=== PATIENT | female | born 1955 | race Two or more races ===

== ENCOUNTER 2023-05-24 07:47 | Day surgery (SDC) | payer OTHER | END 2023-05-24 12:20 | disposition home or self-care (01) | LOC: AMB-ENDOS 07:47 → CIR.AMB 12:45 | PROVIDERS: ATTEND Surgery | DX: D12.0 Benign neoplasm of cecum (principal); K63.5 Polyp of colon; Z86.010 Personal history of colon polyps; K64.8 Other hemorrhoids; K57.30 Diverticulosis of large intestine without perforation or abscess without bleeding; K62.0 Anal polyp; K62.1 Rectal polyp; Z20.822 Contact with and (suspected) exposure to COVID-19 ==

== ENCOUNTER 2023-07-06 08:00 | Outpatient (CLI) | payer OTHER | END 2023-07-06 08:01 | disposition home or self-care (01) | LOC: EKG 08:00 → SURH 07-13 07:00 → EDSTATUS 07-21 10:15 → SURH 07-21 10:15 | PROVIDERS: ATTEND Surgery | DX: D12.0 Benign neoplasm of cecum (principal); K63.5 Polyp of colon; Z86.010 Personal history of colon polyps; K62.1 Rectal polyp ==

== ENCOUNTER 2023-12-21 11:30 | Inpatient (IN) | payer OTHER ==
[~2023-12-21] VITALS: Ht 152.4 cm; Wt 89.8 kg
[~2023-12-21 11:30] MED LIST: SIMVASTATIN20 MG; SYNTHROID75 MCG
[2023-12-21] MEDS ORDERED: MONTELUKAST SOD10 MG PO (15:37)
[2023-12-21] MEDS ORDERED: VITAMIN D310 MCG/1 M PO (15:37)
[2023-12-21] MEDS ORDERED: MILLIPRED5 MG PO (15:37)
[2023-12-21] MEDS ORDERED: PROAIR RESPICL90 MCG IH (15:37)
[2023-12-21] MEDS ORDERED: DAFLONEX-XL 11300 MG PO (15:38)
[2023-12-28] MEDS ORDERED: FLONASE16 GM (09:41)
[2023-12-28] MEDS ORDERED: BUDESONIDE-FO10.2 G1 (09:41)
[2023-12-28] MEDS ORDERED: CEFTRIAXONE SODIUM 2,000 MG VIAL ONE (09:59)
[2023-12-28] MEDS ORDERED: METRONIDAZOLE/SODIUM CHLORIDE 500 MG/100 ML PIGGYBACK IV ONE ×2 (09:59→20:37)
[2023-12-28] MEDS ORDERED: ENOXAPARIN SODIUM 40 MG/0.4 ML SYRINGE SUBCUTANEO ONE (13:08)
[2023-12-28] MEDS ORDERED: OxyCODONE HCL 5 MG TABLET (ROXICODONE) PO PRN (16:15)
[2023-12-28] MEDS ORDERED: ONDANSETRON HCL 2 MG/ML VIAL IV PRN (16:15)
[2023-12-28] MEDS ORDERED: MORPHINE SULFATE 4 MG/ML CARTRIDGE IV PRN (16:15)
[2023-12-28] MEDS ORDERED: RINGERS SOLUTION,LACTATED 1,000 ML IV SCH (16:15)
[2023-12-28] MEDS ORDERED: METRONIDAZOLE/SODIUM CHLORIDE 500 MG/100 ML PIGGYBACK IV SCH (17:00)
[2023-12-28] MEDS ORDERED: GABAPENTIN 300 MG CAPSULE PO SCH (17:00)
[2023-12-28] MEDS ORDERED: HYOSCYAMINE SULFATE 0.125 MG TAB.SUBL SL SCH (17:00)
[2023-12-28] MEDS ORDERED: ACETAMINOPHEN 500 MG GEL..CAP PO SCH (18:00)
[2023-12-28 18:07] LABS: ABG PH 7.432 (7.35-7.45); ABG PO2 172.4 mmHg (80-100); ABG pCO2 35.5 mmHg (35-45); BASE EXCESS -0.6 mmol/l; BICARBONATE 23.1 mmol/l (23-25); SaO2 99.6 %; Tco2 24.2 mmol/l
[2023-12-28 18:08] LABS: allen test SATISFACTORY; o2 100 %; puncture site RADIAL RIGHT
[2023-12-28 18:46] LABS: ABG PH 7.407 (7.35-7.45)
[2023-12-28 18:47] LABS: ABG PO2 149.6 mmHg (80-100); ABG pCO2 36.4 mmHg (35-45); BASE EXCESS -1.7 mmol/l; BICARBONATE 22.4 mmol/l (23-25); SaO2 99.3 %; Tco2 23.5 mmol/l
[2023-12-28 18:49] LABS: allen test SATISFACTORY; o2 50 %; puncture site RADIAL RIGHT
[2023-12-28] MEDS ORDERED: CIPROFLOXACIN IN 5 % DEXTROSE 400 MG/200 ML PIGGYBAG IV ONE (20:36)
[2023-12-28] MEDS ORDERED: FAMOTIDINE/PF 20 MG/2 ML VIAL ONE (20:37)
[2023-12-28] MEDS ORDERED: CIPROFLOXACIN IN 5 % DEXTROSE 400 MG/200 ML PIGGYBAG IV SCH (21:00)
[2023-12-28] MEDS ORDERED: FAMOTIDINE/PF 20 MG/2 ML VIAL IV PUSH SCH (21:00)
[2023-12-28] MEDS ORDERED: FAMOTIDINE/PF 20 MG/10 ML SYRINGE IV PUSH SCH (21:05)
[2023-12-28] MEDS ORDERED: CHLORHEXIDINE GLUCONATE 15ML BRUSH KIT MM SCH (21:07)
[2023-12-28] MEDS ORDERED: POLYVINYL ALCOHOL 15 ML DROPS OP SCH (21:07)
[2023-12-28] MEDS ORDERED: ALBUTEROL SULFATE 3 ML/2.5 MG AMPUL.NEB IH SCH (22:22)
[2023-12-29 08:05] LABS: HEMATOCRIT 31.7 % (36.0-45.00); HEMOGLOBIN 10.9 g/dL (12.0-15.00); MEAN CELL VOLUME 86.8 fL (80.00-100.00); MEAN CORPUSCULAR HEMOGLOBIN 29.7 pg (27.00-32.0); MEAN CORPUSCULAR HGB CONC 34.3 g/dl (32.0-36.0); PLATELET COUNT 182 K/uL (150-450); RED BLOOD COUNT 3.65 M/uL (4.00-6.00); RED CELL DISTRIBUTION WIDTH 13.2 % (11.5-14.5)
[2023-12-29 08:49] LABS: CALCIUM 8.4 mg/dL (8.5-10.1); CREATININE SERUM 0.62 mg/dL (0.55-1.02); GFR 96.31; MAGNESIUM 1.5 mg/dL (1.8-2.4); PHOSPHOROUS 2.6 mg/dL (2.5-4.9); POTASSIUM 3.67 mEq/L (3.5-5.1)
[2023-12-29] MEDS ORDERED: LACTOBACILLUS ACIDOPHILUS 1 CAP CAP PO SCH (09:00)
[2023-12-29] MEDS ORDERED: TAMSULOSIN HCL 0.4 MG CAP PO SCH (09:00)
[2023-12-29] MEDS ORDERED: ENALAPRILAT DIHYDRATE 1.25 MG/ML VIAL IV PRN (10:30)
[2023-12-29 10:38] LABS: ABG PH 7.437 (7.35-7.45); ABG PO2 117.8 mmHg (80-100); ABG pCO2 37.5 mmHg (35-45); BASE EXCESS 0.8 mmol/l; BICARBONATE 24.7 mmol/l (23-25); SaO2 98.7 %; Tco2 25.9 mmol/l
[2023-12-29 11:04] LABS: allen test SATISFACTORY; o2 50 %; puncture site RADIAL LEFT
[2023-12-29] MEDS ORDERED: MAGNESIUM SULFATE IN WATER 50 ML IV SCH (12:00)
[2023-12-29] MEDS ORDERED: CYANOCOBALAMIN (VITAMIN B-12) 1,000 MCG/ML VIAL IM SCH (12:00)
[2023-12-29] MEDS ORDERED: SOD FERRIC GLUC COMPLX/SUCROSE 62.5 MG in 0.9 % SODIUM CHLORIDE 50 ML IV SCH (12:00)
[2023-12-29] MEDS ORDERED: CARBOXYMETHYLCELLULOSE SODIUM 1 EACH DROPERETTE OP SCH (17:00)
[2023-12-29] MEDS ORDERED: ENOXAPARIN SODIUM 40 MG/0.4 ML SYRINGE SUBCUTANEO SCH (17:00)
[2023-12-29] MEDS ORDERED: ALBUTEROL SULFATE 3 ML/2.5 MG AMPUL.NEB IH SCH (18:00)
[2023-12-30] MEDS ORDERED: LEVOTHYROXINE SODIUM 75 MCG TABLET PO SCH (06:00)
[2023-12-30 07:31] LABS: HEMATOCRIT 27.5 % (36.0-45.00); HEMOGLOBIN 9.6 g/dL (12.0-15.00); MEAN CELL VOLUME 86.7 fL (80.00-100.00); MEAN CORPUSCULAR HEMOGLOBIN 30.4 pg (27.00-32.0); MEAN CORPUSCULAR HGB CONC 35.1 g/dl (32.0-36.0); PLATELET COUNT 173 K/uL (150-450); RED BLOOD COUNT 3.17 M/uL (4.00-6.00); RED CELL DISTRIBUTION WIDTH 13.5 % (11.5-14.5)
[2023-12-30 08:03] LABS: ALBUMIN 2.6 gm/dL (3.4-5.0); BILIRUBIN TOTAL 0.63 mg/dL (0.3-1.2); CALCIUM 8.4 mg/dL (8.5-10.1); CREATININE SERUM 0.47 mg/dL (0.55-1.02); GFR 132.58; GLOBULINA 2.6 G/DL (2.4-3.5); MAGNESIUM 2.3 mg/dL (1.8-2.4); POTASSIUM 3.82 mEq/L (3.5-5.1); TOTAL PROTEIN 5.2 gm/dL (6.4-8.2)
[2023-12-30] MEDS ORDERED: MONTELUKAST SODIUM 10 MG TABLET PO SCH (09:00)
[2023-12-30] MEDS ORDERED: POTASSIUM PHOS,M-BASIC-D-BASIC 3 MM/ML VIAL IV ONE (09:00)
[2023-12-30] MEDS ORDERED: ENOXAPARIN SODIUM 40 MG/0.4 ML SYRINGE SUBCUTANEO SCH (09:00)
[2023-12-30] MEDS ORDERED: POTASSIUM PHOS,M-BASIC-D-BASIC 9 MM in 0.9 % SODIUM CHLORIDE 250 ML IV ONE (12:00)
[2024-01-01 07:28] LABS: HEMATOCRIT 25.1 % (36.0-45.00); MEAN CELL VOLUME 87.8 fL (80.00-100.00); MEAN CORPUSCULAR HGB CONC 34.3 g/dl (32.0-36.0); PLATELET COUNT 185 K/uL (150-450); RED BLOOD COUNT 2.86 M/uL (4.00-6.00); RED CELL DISTRIBUTION WIDTH 13.3 % (11.5-14.5)
[2024-01-01 07:57] LABS: HEMOGLOBIN 8.6 g/dL (12.0-15.00)
[2024-01-01 08:01] LABS: CALCIUM 8.2 mg/dL (8.5-10.1); CREATININE SERUM 0.32 mg/dL (0.55-1.02); GFR 206.6; PHOSPHOROUS 2.8 mg/dL (2.5-4.9); POTASSIUM 3.58 mEq/L (3.5-5.1)
[2024-01-01] MEDS ORDERED: FUROsemide 20 MG/2 ML VIAL IV PRN (19:00)
[2024-01-02 19:40] LABS: HEMOGLOBIN 12.7 g/dL (12.0-15.00); MEAN CELL VOLUME 87.3 fL (80.00-100.00); MEAN CORPUSCULAR HEMOGLOBIN 29.9 pg (27.00-32.0); MEAN CORPUSCULAR HGB CONC 34.3 g/dl (32.0-36.0); PLATELET COUNT 216 K/uL (150-450); RED BLOOD COUNT 4.23 M/uL (4.00-6.00); RED CELL DISTRIBUTION WIDTH 13.7 % (11.5-14.5)
[2024-01-03 08:26] LABS: HEMATOCRIT 35.1 % (36.0-45.00); MEAN CORPUSCULAR HEMOGLOBIN 29.8 pg (27.00-32.0); MEAN CORPUSCULAR HGB CONC 34.2 g/dl (32.0-36.0); PLATELET COUNT 227 K/uL (150-450); RED BLOOD COUNT 4.03 M/uL (4.00-6.00); RED CELL DISTRIBUTION WIDTH 13.9 % (11.5-14.5)
[2024-01-03 09:34] LABS: ALBUMIN 2.4 gm/dL (3.4-5.0); BILIRUBIN TOTAL 0.53 mg/dL (0.3-1.2); CALCIUM 8.3 mg/dL (8.5-10.1); CREATININE SERUM 0.39 mg/dL (0.55-1.02); GFR 164.43; GLOBULINA 2.9 G/DL (2.4-3.5); MAGNESIUM 1.7 mg/dL (1.8-2.4); POTASSIUM 3.73 mEq/L (3.5-5.1); TOTAL PROTEIN 5.3 gm/dL (6.4-8.2)
[2024-01-03] MEDS ORDERED: TYLENOL ARTHRI650 MG PO (12:41)
[2024-01-03] MEDS ORDERED: NEURONTIN300 MG PO (12:42)
[2024-01-03] MEDS ORDERED: INTESTINEX680 M1 PO (12:42)
[2024-01-03] MEDS ORDERED: MIRALAX17 GM PO (12:43)
[2024-01-03] MEDS ORDERED: INTEGRA PLUS C1 EACH PO (12:44)
== END 2024-01-03 13:49 | disposition home or self-care (01) | DRG 331 ==
LOC: SURG 11:30 → O/R 12-28 07:36 → ICU 12-28 21:37 → SURH 12-30 10:29
PROVIDERS: Anesthesiology; Internal Medicine; ADMIT Surgery; ATTEND Surgery
PROC: 0DNW4ZZ Release Peritoneum, Percutaneous Endoscopic Approach (ICD-10-PCS; 2023-12-28)
PROC: 0DBU0ZZ Excision of Omentum, Open Approach (ICD-10-PCS; 2023-12-28)
PROC: 0DB80ZZ Excision of Small Intestine, Open Approach (ICD-10-PCS; 2023-12-28)
PROC: 07BC0ZZ Excision of Pelvis Lymphatic, Open Approach (ICD-10-PCS; 2023-12-28)
PROC: 0DTF0ZZ Resection of Right Large Intestine, Open Approach (ICD-10-PCS; principal; 2023-12-28 22:00)
PROC: 4A12X4Z Monitoring of Cardiac Electrical Activity, External Approach (ICD-10-PCS; 2023-12-30)
PROC: 30233N1 Transfusion of Nonautologous Red Blood Cells into Peripheral Vein, Percutaneous Approach (ICD-10-PCS; 2024-01-02)
DX: D12.0 Benign neoplasm of cecum (principal); K63.5 Polyp of colon; N73.6 Female pelvic peritoneal adhesions (postinfective); N99.4 Postprocedural pelvic peritoneal adhesions; D64.9 Anemia, unspecified; J44.9 Chronic obstructive pulmonary disease, unspecified; R59.0 Localized enlarged lymph nodes; G47.33 Obstructive sleep apnea (adult) (pediatric); Z53.31 Laparoscopic surgical procedure converted to open procedure